=== PATIENT | male | born 1945 | race Caucasian/White ===

== ENCOUNTER 2020-05-19 02:16 | Emergency (ER) | payer MEDICARE, OTHER ==
[2020-05-19] MEDS ORDERED: HYDROmorphone HCL INJ 2 MG/ML VIAL IV ONE ×2 (02:35→05:30)
[2020-05-19] MEDS ORDERED: ONDANSETRON INJ 4 MG/2 ML VIAL IV ONE (02:35)
[2020-05-19] MEDS ORDERED: NITROGLYCERIN 0.4 MG 25 EA TAB SL ONE (02:36)
--- NOTE | 2020-05-19 02:42 | ED.PDOC ---
History of Present Illness - General Chief Complaint: Back Pain or Injury Stated Complaint: my back hurts on right side really bad Time Seen by Provider: 05/19/20 02:33 Additional Information: Patient is a 74-year-old male who presents to the ED via EMS with chief complaint of chest pain. Pain is in his central and right chest and radiates to the back. Pain is sharp, 8 out of 10 in intensity, and constant and began approximately 3 hours prior to arrival. Patient was in bed trying to sleep when the pain began. Patient has never had these symptoms before. Patient has a history of CAD and many years ago had a quadruple bypass. He does not have any stents and is not on blood thinner. He has taken 324 mg of aspirin given to him from EMS prior to arrival. Patient with nausea no vomiting, negative fever or chills. Pain is worse with deep inspiration. - History of Present Illness Allergies/Adverse Reactions: Allergies NO KNOWN ALLERGY Allergy (Verified 05/19/20 02:26) Home Medications: Ambulatory Orders Lisinopril 20 mg PO DAILY 05/19/20 Trazodone HCl [Trazodone Hydrochloride] 50 mg PO BEDTIME PRN 05/19/20 Review of Systems - Review of Systems Constitutional: Denies: chills, diaphoresis, fever EENTM: States: no symptoms reported Respiratory: States: short of breath. Denies: cough, orthopnea Cardiology: States: chest pain. Denies: palpitations, syncope Gastrointestinal/Abdominal: States: nausea. Denies: abdominal pain, vomiting Genitourinary: States: no symptoms reported. Denies: dysuria Musculoskeletal: States: no symptoms reported. Denies: muscle pain Skin: Denies: rash Neurological: States: no symptoms reported All other Systems: Reviewed and Negative Past Medical History (General) - Patient Medical History Hx Hypertension: Yes - Vaccination History Hx Tetanus, Diphtheria Vaccination: No Hx Influenza Vaccination: Yes - last year Hx Pneumococcal Vaccination: No Immunizations Up to Date: No - Social History Hx Tobacco Use: No Hx Alcohol Use: Yes - drank a little amaretto this evening Hx Substance Use: No Hx Substance Use Treatment: No Hx Depression: No Family Medical History - Family History Mother Family History: Unknown Physical Exam - Physical Exam General Appearance: Alert, Anxious, Obvious distress Eyes, Ears, Nose, Throat Exam: normal ENT inspection Neck: supple, normal inspection Respiratory: chest non-tender, lungs clear, normal breath sounds, no respiratory distress, no accessory muscle use Cardiovascular/Chest: normal peripheral pulses, regular rate, rhythm, no edema, no gallop, no JVD, no murmur Peripheral Pulses: radial,right: 2+, radial,left: 2+ Gastrointestinal/Abdominal: normal bowel sounds, non tender, soft, no organomegaly, no pulsatile mass Extremity: normal range of motion, non-tender, normal inspection, no pedal edema 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 05/19/20 02:48 EKG: Normal sinus rhythm, rate 91, left axis deviation, normal QRS, T wave inversion anteriorly and laterally, nonspecific ST changes, frequent PVCs, negative STEMI, RBBB, no old EKGs for comparison. Read by Blake Aldridge MD 05/19/20 04:19 Patient reassessed and his chest pain is improved but is still present. Patient's troponin is normal but his d-dimer is elevated and his CT chest shows sub-segmental pulmonary embolisms. There is no aortic dissection. Xarelto has been started as treatment for patient's PE. Given patient's history of bypass surgery with no regular cardiology follow-up, abnormal EKG with frequent PVCs and evidence of ischemia, continued chest pain and mild hypoxia, will transfer patient for cardiology consultation. Patient lives in [place] and request transfer to [facility]. Patient is comfortable and stable at this time and medically clear for transfer once accepted. 05/19/20 04:24 I have discussed with Dr. Ortez at [facility] who expects patient in transfer. Departure - Departure Clinical Impression: Hypertensive urgency Pulmonary embolism Qualifiers: Pulmonary embolism type: multiple subsegmental (without acute cor pulmonale) Qualified Code(s): I26.94 - Multiple subsegmental pulmonary emboli without acute cor pulmonale Chest pain Qualifiers: Chest pain type: unspecified Qualified Code(s): R07.9 - Chest pain, unspecified CAD (coronary artery disease) Qualifiers: Coronary Disease-Associated Artery/Lesion type: unspecified vessel or lesion type [place] vs. transplanted heart: [place] heart Associated angina: with unstable angina Qualified Code(s): I25.110 - Atherosclerotic heart disease of [place] coronary artery with unstable angina pectoris Time of Disposition: :27 Disposition: Transfer to Hospital Condition: Fair Departure Forms: ED Discharge - Pt. Copy, Patient Portal Self Enrollment Instructions: DI for Low Back Pain Home Medications: Ambulatory Orders Lisinopril 20 mg PO DAILY 05/19/20 Trazodone HCl [Trazodone Hydrochloride] 50 mg PO BEDTIME PRN 05/19/20 Transfer to Outside Facility - Transfer Information Decision to Transfer Date: 05/19/20 Decision to Transfer Time: :27 Reason for Transfer: required specialist not available Accepting Provider:: Dr. Ortez Accepting Facility: [facility]
[2020-05-19] MEDS ORDERED: METOPROLOL TARTRATE INJ 5 MG/5 ML VIAL IV ONE (02:45)
--- NOTE | 2020-05-19 02:50 | RAD ---
EXAM DESCRIPTION: X-ray single view chest. CLINICAL HISTORY: 74 years Male, Pain COMPARISON: None. TECHNIQUE: Single portable x-ray view of the chest performed on 05/19/2020 at 2:41 AM FINDINGS: The lungs are well expanded. The left lung base is poorly delineated on this examination likely due to overlying soft tissue artifact. There is no evidence of a pneumothorax. There is mild elevation of the right hemidiaphragm. The cardiac silhouette is prominent and may be accentuated by the portable technique. There are postsurgical changes of the mediastinum. The mediastinal contours are normal. No acute osseous abnormality is identified. No focal soft tissue abnormalities are seen. Lines and tubes: None. IMPRESSION: 1. No definite acute intrathoracic disease. The left lung base is poorly delineated on this examination likely due to overlying soft tissue artifact. 2. Mild elevation of the right hemidiaphragm. 3. Remote median sternotomy. Electronically signed by: Em Warren DO 05/19/2020 2:48 AM CDT
--- NOTE | 2020-05-19 04:02 | CT ---
EXAM: CTA Chest HISTORY: CP rad to back COMPARISON: 05/19/2020 TECHNIQUE: Contiguous axial CTA images of the chest were obtained from the thoracic inlet to the upper abdomen after administration of intravenous contrast followed by multiplanar reformats. 3-D postprocessing was performed. This exam was performed according to our departmental dose-optimization program, which includes automated exposure control, adjustment of the mA and/or kV according to patient size and/or use of iterative reconstruction technique. FINDINGS: Motion limited study. There is adequate opacification of the pulmonary arterial vasculature. There are bilateral scattered pulmonary emboli involving the right and left lower lobe and right upper lobe arterial branches. Cardiomegaly. No pericardial effusion. No mediastinal adenopathy. Central airways are patent. Great vessels are normal. Dependent bibasilar atelectasis. Trace right pleural effusion. No pneumothorax. Limited visualization of upper abdominal contents is unremarkable for an acute process. No destructive osseous lesion. IMPRESSION: 1. Scattered bilateral pulmonary emboli, moderate, nonobstructive. 2. Cardiomegaly. 3. Trace right pleural effusion. Electronically signed by: Pk Urbano MD 05/19/2020 4:01 AM CDT
[2020-05-19] MEDS ORDERED: RIVAROXABAN 10 MG TAB PO ONE (04:14)
[2020-05-19] MEDS ORDERED: RIVAROXABAN 15 MG TAB PO ONE (04:16)
[2020-05-19] MEDS ORDERED: POTASSIUM CHLORIDE 20 MEQ TAB PO ONE (04:22)
[2020-05-19 04:47] VITALS: TEMP 97.4
[2020-05-19 05:19] VITALS: BP 115/64; O2SAT 94
[2020-05-19] MEDS ORDERED: HYDROmorphone HCL INJ 2 MG/ML VIAL ONE (05:28)
[2020-05-19] MEDS ORDERED: EPINEPHrine INJ 0.1 MG/ML 10 ML SYG ONE (20:30)
== END 2020-05-19 05:26 | disposition short-term general hospital (02) ==
LOC: ER 02:16
DX: I16.0 Hypertensive urgency (principal); I26.94 Multiple subsegmental thrombotic pulmonary emboli without acute cor pulmonale; R07.9 Chest pain, unspecified; I25.110 Atherosclerotic heart disease of native coronary artery with unstable angina pectoris; R11.0 Nausea; Z79.82 Long term (current) use of aspirin; Z79.899 Other long term (current) drug therapy; Z95.1 Presence of aortocoronary bypass graft; Z11.59 Encounter for screening for other viral diseases
CPT/HCPCS: 71045; 71275; 80053; 83605; 83880; 84484; 85025; 85379; 85610; 85730; 87040; 87635; 93005; J1170; J2405